=== PATIENT | male | born 2000 | race Caucasian/White ===

== ENCOUNTER 2024-10-29 18:01 | Inpatient (IN) | payer SELFPAY ==
[~2024-10-29] VITALS: Ht 170.2 cm; Wt 82.1 kg
[2024-10-29 18:05] VITALS: O2SAT 100
[2024-10-29] MEDS: DIPHENHYDRAMINE 50MG/ML VIAL IV ONE (18:39)
[2024-10-29] MEDS: SODIUM CHLORIDE 0.9% 1,000 ML IV ONE ×2 (18:39→22:00)
[2024-10-29] MEDS: METOCLOPRAMIDE HCL 10MG/2ML VIAL IV ONE (18:39)
[2024-10-29] MEDS: PANTOPRAZOLE SODIUM 40 MG/VIAL IV ONE (18:40)
[2024-10-29] MEDS: KETOROLAC 15MG/ML VIAL IV ONE (18:40)
[2024-10-29 18:58] LABS: BASOPHILS % 0.1 % (0.0-2.0); EOSINOPHILS % 0.0 % (0.0-5.0); HEMATOCRIT. 46.6 % (42.0-52.0); HEMOGLOBIN. 15.9 g/dL (14.0-18.0); LYMPHOCYTES % 9.7 % (20.0-50.0); MEAN PLATELET VOLUME 7.2 fl (7.4-10.4); MONOCYTES % 3.3 % (2.0-8.0); NEUTROPHILS % 86.9 % (40.0-76.0); PLATELET 281 x1000/uL (130-400); RED BLOOD CELL COUNT 5.74 mill/uL (4.7-6.1); RED CELL DISTRIBUTION WIDTH 13.6 % (11.6-14.6)
[2024-10-29] MEDS: MORPHINE SULFATE 4 MG/ML INJ (FOR IV/IM USE) IV ONE (19:01)
[2024-10-29 19:17] LABS: CREATININE 1.0 mg/dL (0.6-1.3); UREA NITROGEN BLOOD 9 mg/dL (9-23)
[2024-10-29 19:18] LABS: ETHANOL BLOOD < 10 mg/dL (<10)
[2024-10-29 19:19] LABS: ASPARTATE AMINOTRANSFERASE 17 IU/L (<34); BILIRUBIN DIRECT 0.2 mg/dL (<=3.0); BILIRUBIN TOTAL 0.5 mg/dL (0.1-1.0); PROTEIN TOTAL 7.7 g/dL (6.0-8.3)
[2024-10-29] MEDS: HYDROMORPHONE HCL/PF 1MG/ML INJ IV NR (21:35)
[2024-10-29 23:42] LABS: CLARITY URINE CLEAR (CLEAR); COLOR URINE YELLOW (YELLOW); GLUCOSE URINE NEGATIVE (NEGATIVE); KETONES URINE NEGATIVE (NEGATIVE); LEUKOCYTE ESTERASE URINE NEGATIVE (NEGATIVE); NITRITE URINE NEGATIVE (NEGATIVE); OCCULT BLOOD URINE NEGATIVE (NEGATIVE); PH URINE 7.0 (4.5-8.0); PROTEIN URINE NEGATIVE (NEGATIVE); SPECIFIC GRAVITY URINE 1.006 (1.005-1.030); UROBILINOGEN URINE 0.2 E.U./dL (0.2-1.0)
[2024-10-29 23:54] LABS: *AMPHETAMINES SCREEN URINE NEGATIVE (NEGATIVE); *BARBITURATES SCREEN URINE NEGATIVE (NEGATIVE); *BENZODIAZEPINES SCREEN URINE NEGATIVE (NEGATIVE); *COCAINE SCREEN URINE NEGATIVE (NEGATIVE); CANNABINOID URINE SCREEN NEGATIVE (NEGATIVE); ECSTASY MDMA SCREEN URINE NEGATIVE (NEGATIVE); METHADONE URINE SCREEN NEGATIVE (NEGATIVE); OPIATES URINE SCREEN PRESUMPTIVE POSITIVE (NEGATIVE); PHENCYCLIDINE URINE SCREEN NEGATIVE (NEGATIVE)
[2024-10-30] VITALS (7 sets, daily range): BP systolic 95–137; BP diastolic 52–67; PULSE 68–88; RESP 17–20; TEMP 36.1–36.8; O2SAT 96–98
[2024-10-30] MEDS ORDERED: KETOROLAC 15MG/ML VIAL IV PRN (00:30)
[2024-10-30] MEDS ORDERED: ONDANSETRON HCL 4MG/2ML INJ IV PRN (01:00)
[2024-10-30] MEDS: DEXT 5%/0.9% NACL 1,000 ML IV SCH (01:37)
[2024-10-30] MEDS: PIPERACILLIN/TAZO 3.375G/50ML 50 ML IV SCH (01:38)
[2024-10-30] MEDS: PANTOPRAZOLE SODIUM 40 MG/VIAL IV SCH (11:45)
[2024-10-30 13:14] LABS: PLATELET 255 x1000/uL (130-400); RED BLOOD CELL COUNT 5.34 mill/uL (4.7-6.1); RED CELL DISTRIBUTION WIDTH 13.3 % (11.6-14.6)
[2024-10-30 13:25] LABS: CREATININE 0.9 mg/dL (0.6-1.3); UREA NITROGEN BLOOD 9 mg/dL (9-23)
[2024-10-30 13:27] LABS: PHOSPHORUS 3.6 mg/dL (2.5-4.9)
[2024-10-31] VITALS: BP 100/59; PULSE 70; RESP 19; TEMP 36.7; O2SAT 98
[2024-10-31 04:00] VITALS: BP 111/60; PULSE 75; RESP 20; TEMP 36.8; O2SAT 98
[2024-10-31 08:00] VITALS: BP 104/55; PULSE 64; RESP 16; TEMP 36.5; O2SAT 97
[2024-10-31 09:36] LABS: BASOPHILS % 0.4 % (0.0-2.0); EOSINOPHILS % 1.0 % (0.0-5.0); HEMATOCRIT. 44.3 % (42.0-52.0); HEMOGLOBIN. 14.8 g/dL (14.0-18.0); LYMPHOCYTES % 41.4 % (20.0-50.0); MEAN PLATELET VOLUME 7.5 fl (7.4-10.4); MONOCYTES % 9.0 % (2.0-8.0); NEUTROPHILS % 48.2 % (40.0-76.0); PLATELET 259 x1000/uL (130-400); RED BLOOD CELL COUNT 5.42 mill/uL (4.7-6.1); RED CELL DISTRIBUTION WIDTH 13.5 % (11.6-14.6)
[2024-10-31 09:49] LABS: CREATININE 1.1 mg/dL (0.6-1.3); UREA NITROGEN BLOOD 12 mg/dL (9-23)
[2024-10-31 09:51] LABS: T4 FREE 1.33 ng/dL (0.89-1.76)
[2024-10-31 12:00] VITALS: BP 100/49; PULSE 56; RESP 18; TEMP 36.4; O2SAT 98
[2024-10-31 13:55] VITALS: BP 104/55; PULSE 64; RESP 16; TEMP 97.7
== END 2024-10-31 15:20 | disposition home or self-care (01) | DRG 247 ==
LOC: ER 18:01 → 6EST 23:04 → EDBEDREQ 23:10 → EDBEDREQTM 23:10 → ENRESERV 23:21
PROVIDERS: ADMIT Internal Medicine; ATTEND Internal Medicine
PROC: 0D9670Z Drainage of Stomach with Drainage Device, Via Natural or Artificial Opening (ICD-10-PCS; principal; 2024-10-30)
DX: K56.609 Unspecified intestinal obstruction, unspecified as to partial versus complete obstruction (principal); Z90.49 Acquired absence of other specified parts of digestive tract
CPT/HCPCS: 36415; 71045; 74018; 74176; 80048; 80076; 80305; 80320; 81003; 83605; 83735; 84100; 84439; 84443; 85025; 85027; 99291; A4606; J1171; J1200; J1885; J2270; J2470; J2543; J2765; J7030; J7042; G0480